=== PATIENT | female | born 1975 | race Caucasian/White ===

== ENCOUNTER 2021-08-03 07:11 | Emergency (ER) | payer BC ==
[~2021-08-03] VITALS: Ht 165.1 cm; Wt 91.8 kg
[2021-08-03 07:15] VITALS: BP 156/85
== END 2021-08-03 07:41 | disposition home or self-care (01) ==
LOC: ER 07:11
DX: K80.20 Calculus of gallbladder without cholecystitis without obstruction (principal); Z88.1 Allergy status to other antibiotic agents; Z79.899 Other long term (current) drug therapy
CPT/HCPCS: 99281

== ENCOUNTER 2021-11-08 05:24 | Day surgery (SDC) | payer BC ==
[2021-11-01 14:52] LABS: BASOPHILS # (AUTO) 0.1 X10'3 (0-0.2); EOSINOPHILS # (AUTO) 0.2 X10'3 (0-0.9); EOSINOPHILS % (AUTO) 2.3 % (0-6); LYMPHOCYTES # (AUTO) 2.1 X10'3 (1.1-4.8); LYMPHOCYTES % (AUTO) 30.3 % (21-51); MEAN CORPUSCULAR HGB CONC 33.2 g/dL (33.0-36.5); MEAN CORPUSCULAR VOLUME 84.2 FL (78-98); MEAN PLATELET VOLUME 8.4 FL (7.4-10.4); MONOCYTES # (AUTO) 0.4 X10'3 (0-0.9); MONOCYTES % (AUTO) 5.3 % (2-12); NEUTROPHILS # (AUTO) 4.2 X10'3 (1.8-7.7); NEUTROPHILS % (AUTO) 61.1 % (42-75); PRE OP HEMATOCRIT 38.2 % (35.0-45.0); PRE OP HEMOGLOBIN 12.7 g/dL (12.0-16.0); PRE OP PLATELET COUNT 265 X10'3 (140-440); RED BLOOD COUNT 4.54 X10'6 (4.20-5.60); RED CELL DISTRIBUTION WIDTH 14.9 % (11.5-14.5)
[2021-11-01 15:41] LABS: ALBUMIN/GLOBULIN RATIO 1.1 (1.1-1.5); ALKALINE PHOSPHATASE 55 IU/L (46-116); BLOOD UREA NITROGEN 12 MG/DL (7-18); BUN/CREATININE RATIO 13.3 (6.6-38.0); CHLORIDE 105 MMOL/L (99-107); PRE OP ALT 29 U/L (30-65); PRE OP ANION GAP 8 (8-16); PRE OP AST 20 U/L (10-37); PRE OP BILIRUB, TOTAL 0.3 MG/DL (0.0-1.0); PRE OP GLUCOSE 118 MG/DL (70-104); PRE OP POTASSIUM 3.9 MMOL/L (3.4-5.1); PRE OP SODIUM 141 MMOL/L (135-145); TOTAL CARBON DIOXIDE 28.4 MMOL/L (24-32); TOTAL PROTEIN 7.5 G/DL (6.4-8.2); eGFR 67 ML/MIN
[2021-11-08] VITALS (10 sets, daily range): BP systolic 120–141; BP diastolic 55–77
[~2021-11-08] VITALS: Ht 165.1 cm; Wt 90.8 kg
[~2021-11-08 05:24] MED LIST: LEVO100T78 PO; ringers solution, lacted 1,000 ML IV SCH
[2021-11-08] MEDS ORDERED: clindamycin-Cleocin 900mg/D5W 50 ML IV ONE (05:30)
[2021-11-08] MEDS ORDERED: INDOCYANINE GREEN 25 MG/10 ML VIAL IV ONE (05:30)
[2021-11-08] MEDS ORDERED: famotidine 20mg tablet PO ONE (05:30)
[2021-11-08] MEDS ORDERED: BUPIVAcaine/PF 2.5 mg/ml (0.25%) 30ml vial ONE (06:33)
[2021-11-08] MEDS ORDERED: LIDOcaine 1% W/epiNEPHrine 1:100,000 20ml vial ONE (06:34)
[2021-11-08] MEDS ORDERED: rocuronium 10mg/ml inj IV ONE (07:38)
[2021-11-08] MEDS ORDERED: fentaNYL/PF 50MCG/1 ML 2ML syringe ONE (07:38)
[2021-11-08] MEDS ORDERED: midazolam 1 mg/ML 2ml injection ONE (07:38)
[2021-11-08] MEDS ORDERED: propofol inj 20 ML IV ONE (07:39)
[2021-11-08] MEDS ORDERED: ringers solution, lacted 1,000 ML IV SCH (07:45)
[2021-11-08] MEDS ORDERED: morphine 2 MG/ML inj. syringe IV PRN (07:45)
[2021-11-08] MEDS ORDERED: proCHLORperazine 10 MG/2 ml inj IV PRN (07:45)
[2021-11-08] MEDS ORDERED: ondansetron/PF 4mg/2ml inj IV PRN (07:45)
[2021-11-08] MEDS ORDERED: meperidine/PF 25mg/ml syringe IV PRN ×3 (07:45)
[2021-11-08] MEDS ORDERED: morphine 4 MG/ML inj SYRINge IV PRN (07:45)
[2021-11-08] MEDS ORDERED: dexamethasone sod phosphate 4mg/ml inj. ONE ×2 (08:34)
[2021-11-08] MEDS ORDERED: sugammadex 200mg/2ml injection IV ONE (08:34)
[2021-11-08] MEDS ORDERED: ondansetron/PF 4mg/2ml inj ONE (08:34)
[2021-11-08] MEDS ORDERED: oxyCODONE/APAP 5-325mg tablet PO PRN (09:00)
--- NOTE | 2021-11-08 09:00 | NUR ---
Received from OR via [facility], accompanied by Anesthesiologist DR ZHANG and report given by Anesthesiolgist. PT IS GROGGY WAKES EASILY TO VERBAL STIMULI AND IS ROLLING ALL OVER BED NOT FOLLOWING COMMANDS, OSBORNE FREELY. PT PLACED ON BEDSIDE MONITOR, VSS. PT RECEIVING 10L O2 TO MASK AND TOLERATING WELL, O2 SAT > 97%. WILL TITRATE DOWN PT TOLERATES. PT HAS 20G PIV TO LEFT HAND WITH LR INFUSING AT 100ML/HR. PT HAS 4 BANDAGES OB ABD, ALL ARE CDI. PT C/O PAIN AND WILL TREAT ORDERED. WILL CONTINUE TO ASSESS.
== END 2021-11-08 10:43 | disposition home or self-care (01) ==
LOC: PAS 05:24
PROVIDERS: ATTEND Surgery
DX: K80.10 Calculus of gallbladder with chronic cholecystitis without obstruction (principal); Z79.899 Other long term (current) drug therapy; Z88.8 Allergy status to other drugs, medicaments and biological substances; Z98.890 Other specified postprocedural states
CPT/HCPCS: 36415; 47562; 80053; 82948; 85025; 87811; 93005; J0780; J1100; J2175; J2250; J2270; J2405; J2704; J3010; J3490; J7030; J7120; S2900; Z7506; Z7508; Z7512; A4215; A4615; A4618; A7000